=== PATIENT | female | born 2000 | race Native Hawaiian/Other Pacific Islander ===

== ENCOUNTER 2021-10-10 22:19 | Emergency (ER) | payer OTHER ==
[~2021-10-10] VITALS: Ht 154.9 cm; Wt 59.9 kg
[2021-10-10 23:10] VITALS: BP 128/83; TEMP 98.9
== END 2021-10-10 23:10 | disposition home or self-care (01) ==
LOC: ED 22:19
DX: H65.191 Other acute nonsuppurative otitis media, right ear (principal); F17.210 Nicotine dependence, cigarettes, uncomplicated
CPT/HCPCS: 96372; 99283; J0696; J1885